=== PATIENT | female | born 1995 | race Caucasian/White ===

== ENCOUNTER 2020-07-12 15:01 | Emergency (ER) | payer BC, MEDICAID ==
[~2020-07-12] VITALS: Ht 165.1 cm; Wt 113.6 kg
[2020-07-12 15:31] VITALS: BP 139/95
[2020-07-12 16:07] LABS: URINE HCG NEGATIVE (NEG)
[2020-07-12 16:08] LABS: CLARITY,URINE CLOUDY (Clear); COLOR,URINE YELLOW (Yellow); GLUCOSE, URINE NEGATIVE (Neg); KETONES,URINE NEGATIVE (Neg); LEUKOCYTE ESTERASE ,URINE SMALL (Neg); NITRITES, URINE NEGATIVE (Neg); OCCULT BLOOD,URINE LARGE (Neg); PH,URINE 7.5 (4.8-8.0); PROTEIN,URINE NEGATIVE (Neg)
[2020-07-12 16:15] LABS: UA COLLECTION TYPE CLN CATCH MIDSTREAM
[2020-07-12 16:16] LABS: SQUAMOUS EPITHELIAL CELL,UR MANY /LPF (FEW)
[2020-07-12 16:17] LABS: AMORPHOUS PHOSPHATES 4+
[2020-07-12 16:18] LABS: BACTERIA,URINE 2+ /HPF (Neg); WBC,URINE 0-4 /HPF (0-4)
[2020-07-12] MEDS ORDERED: CefTRIAXone 1000mg IM Kit (w/lidocaine diluent) IM STA (16:44)
[2020-07-12] MEDS ORDERED: azithromycin 250mg tablet PO ONE (16:45)
== END 2020-07-12 18:15 | disposition home or self-care (01) ==
LOC: ER 15:02
DX: N93.9 Abnormal uterine and vaginal bleeding, unspecified (principal)
CPT/HCPCS: 36415; 81001; 81025; 86592; 87491; 87591; 96372; 99284; J0696